=== PATIENT | female | born 1980 | race Caucasian/White ===

== ENCOUNTER 2023-10-01 08:07 | Day surgery (SDC) | payer MEDICAID ==
[~2023-10-01] VITALS: Ht 170.2 cm; Wt 59.0 kg
[2023-10-01 09:26] LABS: HEMATOCRIT 28.2 % (36-48); HEMOGLOBIN 8.5 g/dL (12.0-16.0); MEAN CORPUSCULAR HEMOGLOBIN 21 pg (27-31); MEAN CORPUSCULAR HGB CONC 30 % (32-36); MEAN CORPUSCULAR VOLUME 69 fL (79.0-98.0); PLATELET COUNT (AUTO) 400 K/uL (130-430); WHITE BLOOD COUNT (AUTO) 3.7 K/uL (4.8-10.8)
[2023-10-01 09:29] LABS: HCG,QUAL RESULT NEGATIVE (NEGATIVE)
[2023-10-01 09:39] LABS: CALCIUM 9.2 mg/dL (8.4-11.0); CREATININE 0.65 mg/dL (0.55-1.30); POTASSIUM 4.1 mmol/L (3.5-5.1)
[2023-10-01 10:05] LABS: BASOPHILS % (MANUAL) 0 % (0-2); EOSINOPHILS % (MANUAL) 0 % (0-7); LYMPHOCYTES % (MANUAL) 40 % (20-46); MONOCYTES % (MANUAL) 11 % (0-11); PLATELET ESTIMATE ADEQUATE (ADEQUATE)
[2023-10-01 10:06] LABS: ANISOCYTOSIS 3+; HYPOCHROMASIA 3+; OVALOCYTES FEW; TEAR DROP CELLS FEW
[2023-10-01] MEDS ORDERED: LR 1,000 ML IV SCH (11:30)
[2023-10-01] MEDS ORDERED: HYDROmorphone 1 MG/ML INJ. CARTRIDGE IVP PRN (11:30)
[2023-10-01] MEDS ORDERED: MIDAZOLAM HCL 2 MG/2 ML VIAL (VERSED) IVP PRN (11:30)
[2023-10-01] MEDS ORDERED: fentaNYL CITRATE/PF 100 MCG/2 ML AMP ONE (12:07)
[2023-10-01] MEDS ORDERED: DEXAMETHASONE SOD PHOSPHATE 4 MG/ML VIAL ONE (12:07)
[2023-10-01] MEDS ORDERED: ONDANSETRON HCL 4 MG/2 ML VIAL ONE (12:07)
[2023-10-01] MEDS ORDERED: ROCURONIUM BROMIDE 10 MG/ML (ZEMURON) ONE (12:07)
[2023-10-01] MEDS ORDERED: LR 1,000 ML IV.SOLN IV ONE (12:07)
[2023-10-01] MEDS ORDERED: DESFLURANE 15 MIN GAS INH ONE (12:07)
[2023-10-01] MEDS ORDERED: GLYCOPYRROLATE 0.2 MG/ML VIAL ONE (12:07)
[2023-10-01] MEDS ORDERED: WATER FOR IRRIGATION,STERILE 1,000 ML IRRIG.SOLN IR ONE (12:07)
[2023-10-01] MEDS ORDERED: PHENYLEPHRINE HCL 10 MG/ML VIAL (NEOSYNEPHRINE) ONE (12:07)
[2023-10-01] MEDS ORDERED: PROPOFOL 200MG/ 20ML VIAL (DIPRIVAN) IV ONE (12:07)
[2023-10-01] MEDS ORDERED: MIDAZOLAM HCL 5 MG/ML VIAL (VERSED) IV ONE (12:07)
[2023-10-01] MEDS ORDERED: LIDOCAINE 2%, 20 ML MDV ONE (12:07)
[2023-10-01] MEDS ORDERED: OXYMETAZOLINE HCL 0.05% NASAL SPRAY NS ONE (12:07)
[2023-10-01] MEDS ORDERED: HYDROmorphone 1 MG/ML INJ. CARTRIDGE ONE (12:14)
[2023-10-01] MEDS: HYDROmorphone 1 MG/ML INJ. CARTRIDGE IVP PRN (12:25)
[2023-10-01] MEDS: METOCLOPRAMIDE HCL 10 MG/2 ML VIAL IVP PRN (12:51)
[2023-10-01] MEDS ORDERED: METOCLOPRAMIDE HCL 10 MG/2 ML VIAL ONE (12:54)
[2023-10-01] MEDS ORDERED: MEPERIDINE HCL/PF 25 MG/ML DISP.SYRIN ONE (13:11)
[2023-10-01 13:15] VITALS: O2SAT 100
[2023-10-01] MEDS: MEPERIDINE HCL/PF 25 MG/ML DISP.SYRIN IVP PRN (13:30)
[2023-10-01] MEDS ORDERED: ACETAMINOPHEN I.V. 1000 MG 100 ML IV ONE (15:00)
[2023-10-01 15:30] VITALS: BP_SYST 125; PULSE 74; RESP 18; TEMP 98.9
== END 2023-10-01 16:08 | disposition home or self-care (01) ==
LOC: SDS 08:07 → SMU 08:20 → SDS 16:08
PROVIDERS: ATTEND Otolaryngology
DX: S02.2XXA Fracture of nasal bones, initial encounter for closed fracture (principal); K21.9 Gastro-esophageal reflux disease without esophagitis; G47.63 Sleep related bruxism; J45.50 Severe persistent asthma, uncomplicated; Z98.890 Other specified postprocedural states; Z79.899 Other long term (current) drug therapy; X58.XXXA Exposure to other specified factors, initial encounter; Y93.89 Activity, other specified; Y92.89 Other specified places as the place of occurrence of the external cause; Y99.8 Other external cause status
CPT/HCPCS: 21320; 85027; 80048; 84703; 85007; 36415; 93005; 71045; J1100; J3490; J2765; J2250; J2405; J2370; J2704; J3010; J1170; J2175; J7120; J0131; J2001